=== PATIENT | female | born 1960 | race Caucasian/White ===

== ENCOUNTER → 2017-01-07 | Outpatient (CLI) | payer OTHER ==
[~2017-01-07] MED LIST: ABILIFY PO; ABILIFY2 MG PO; BACTRIM DS TABL1 TA1 PO; BACTRIM DS TABL1 TAB PO; CIPRO PO; CYMBALTA PO; DESYREL150 M1 PO; DIAZEPAM PO; EFFEXOR XR PO; GABAPENTIN400 M2 PO; HYDROCHLOROTHIA25 MG PO; HYDROCODON-ACE1 EAC9 PO; HYDROCODONE/APA1 T16 PO; KLONOPIN PO; LISINOPRIL PO; LISINOPRIL10 MG PO; LITHIUM PO; LORTAB 7.5-5001 TAB PO; LORTAB 7.51 TAB 7.5/ PO; MOBIC PO; MOTRIN50 MG PO; MS CONTIN PO; NAPROSYN500 MG PO; NEURONTIN300 MG PO; PREDNISONE PO; PRENATAL1 TA1 PO; PYRIDIUM PO; SOMA PO; TYLOX 5/500 CAP1 CAP PO; ULTRAM PO; VICODIN 5/500 T1 TAB PO; VITANATAL OB +1 EACH PO; ZANTAC PO; ZYRTEC10 M2 PO
--- NOTE | ~2017-01-07 | CR151 ---
[facility]. [facility] A Service of [facility] & [facility] RADIOLOGY TEXT RESULTS PATIENT: ANTONIA GUNN LOCATION: [facility] : 60 UNIT #: [id number] AGE: [address]: RAJI KU APRN SEX: F ORDER DR: [id number] [place] [id number] O MR#: [id number] Acc #: [id number] NAME: ANTONIA GUNN : 1960 SEX: F STUDY DATE/TIME: 01/07/2017 16:32 [facility]: STUDY DESCRIPTION: CR Hip Min 2 Views Rt Attending Physician: Raji Ku Aprn Ordering Physician: Eugenio Varghese M.D. Primary Care Physician: Marco A Tolbert Jr., A.P.R.N. MEDICAL IMAGING REPORT This report is preliminary unless electronic signature is present. EXAM Right hip, 01/07/2017 HISTORY 56-year-old female with chronic bilateral hip pain for several years. COMPARISON None FINDINGS Two views of the right hip demonstrate no acute fracture or dislocation. There are mild degenerative changes noted in both hips. Bony pelvis intact. Sacrum and SI joints intact. Extensive postoperative changes of the lumbosacral spine and pelvis are noted. Soft tissues are unremarkable. IMPRESSION No acute fracture or dislocation. Mild bilateral hip arthrosis. Extensive postoperative changes of the lumbosacral spine and pelvis. Dictated by... Gregory Levy M.D. THIS IS AN ELECTRONICALLY VERIFIED REPORT Gregory Levy M.D. at 01/08/2017 3:24 PM Ashkan TD: 01/08/2017 08:30 JOB #: [id number] MEDICAL IMAGING REPORT Page 1 of 1
--- NOTE | ~2017-01-07 | CR150 ---
[facility] A Service of [facility] RADIOLOGY TEXT RESULTS PATIENT: ANTONIA GUNN LOCATION: [facility] : 60 UNIT #: [id number] AGE: [address]: RAJI KU APRN SEX: F ORDER DR: [id number] [place] [id number] O MR#: [id number] Acc #: [id number] NAME: ANTONIA GUNN : 1960 SEX: F STUDY DATE/TIME: 01/07/2017 16:32 [facility]: STUDY DESCRIPTION: CR Hip Min 2 Views Lt Attending Physician: Raji Ku Aprn Ordering Physician: Eugenio Varghese M.D. Primary Care Physician: Marco A Tolbert Jr., A.P.R.N. MEDICAL IMAGING REPORT This report is preliminary unless electronic signature is present. EXAM Left hip 01/07/2017 HISTORY 56-year-old female with chronic bilateral hip pain for several years. COMPARISON None. FINDINGS 2 views of the left hip demonstrate no acute fracture or dislocation. Mild degenerative changes noted in both hips. Bony pelvis intact. Extensive postoperative changes of the lumbosacral spine and pelvis are noted. IMPRESSION 1. No acute fracture or dislocation. Mild bilateral hip arthrosis. 2. Extensive postoperative changes of the lumbosacral spine and pelvis. Dictated by... Gregory Levy M.D. THIS IS AN ELECTRONICALLY VERIFIED REPORT Gregory Levy M.D. at 01/08/2017 3:24 PM ANTONY/magalie TD: 01/08/2017 08:45 JOB #: [id number] MEDICAL IMAGING REPORT [facility] A Service [facility] RADIOLOGY TEXT RESULTS PATIENT: ANTONIA GUNN LOCATION: [facility] : 60 UNIT #: [id number] AGE: [address]: RAJI KU APRN SEX: F ORDER DR: Page 1 of 1
== END | disposition home or self-care (01) ==
LOC: SRAD 16:22
DX: M25.551 Pain in right hip (principal); M25.552 Pain in left hip; M16.0 Bilateral primary osteoarthritis of hip; E55.9 Vitamin D deficiency, unspecified
CPT/HCPCS: 73502